=== PATIENT | male | born 1995 | race Caucasian/White ===

== ENCOUNTER 2017-01-05 11:07 | Emergency (ER) | payer BC ==
[~2017-01-05] VITALS: Ht 175.3 cm; Wt 75.0 kg
[2017-01-05 11:12] VITALS: TEMP 98.1
[2017-01-05] MEDS ORDERED: CRUTCHES MC (13:17)
[2017-01-05] MEDS ORDERED: NORCO 325 MG-51 TAB PO (13:17)
[2017-01-05 13:52] VITALS: BP 110/68; PULSE 62
== END 2017-01-05 14:02 | disposition home or self-care (01) ==
LOC: COL.ER 11:07
DX: S52.502A Unspecified fracture of the lower end of left radius, initial encounter for closed fracture (principal); S01.91XA Laceration without foreign body of unspecified part of head, initial encounter; S93.402A Sprain of unspecified ligament of left ankle, initial encounter; V00.131A Fall from skateboard, initial encounter; Y92.830 Public park as the place of occurrence of the external cause
CPT/HCPCS: J2270

== ENCOUNTER → 2017-01-17 | Emergency (ER) | payer BC ==
[~2017-01-17] MED LIST: CRUTCHES MC; NORCO 325 MG-51 TAB PO
[2017-01-17 11:39] VITALS: BP 135/57; PULSE 52; TEMP 98.7
== END ==
LOC: COL.ER 11:32
DX: S01.01XD Laceration without foreign body of scalp, subsequent encounter (principal); X58.XXXD Exposure to other specified factors, subsequent encounter